=== PATIENT | male | born 1985 | race Asian ===

== ENCOUNTER 2018-11-10 09:47 | Emergency (ER) | payer BC, OTHER ==
--- NOTE | 2018-11-10 09:58 | EDPHY ---
HPI/HX/ROS/PE/MDM Narrative: CHIEF COMPLAINT: Chest Pain HPI: This patient is a pleasant 32 year old male with history of hypertension. He presents today with complaints of intermittent left-sided chest pain which began after waking this morning around 5:20am. He describes this as an aching sensation, like "prodding pressure". These episodes last about 10-30 minutes. He denies any identifiable provocative or palliative factors. Denies shortness of breath. The sensation is not changed with deep inspiration. No pain or swelling in his calves. He is generally quite active, but has been tired the past couple days and skipped his regular [employer] workout yesterday. He denies any recent chest trauma or injuries. No known personal or immediate family history of cardiac disease. He endorses history of back and neck issues, but these are chronic and he denies any acute exacerbations. REVIEW OF SYSTEMS: A comprehensive 10 system review of systems is otherwise negative aside from elements mentioned in the history of present illness and medical decision making. PMH: Hypertension. SOCIAL HISTORY: Employed. Lives in [place]. Does not abuse tobacco, drugs, or alcohol. PHYSICAL EXAM: General:Patient is alert, in no acute distress. ENT:Eyes are normal to inspection. ENT inspection normal. Neck: Normal inspection. Full range of motion. Respiratory:No respiratory distress. Breath sounds normal bilaterally. Cardiovascular: Regular rate and rhythm. Strong peripheral pulses. Normal cap refill. Abdomen:The abdomen is nontender to palpation. There are no peritoneal signs. There are normal bowel sounds. Back: Normal to inspection. No tenderness to palpation. Skin: Normal color. No rash. Warm and dry. Extremities: Normal appearance. Full range of motion. Neuro: Oriented x3. Normal motor function. Normal sensory function. ED Course: 32 year old male presents with intermittent chest discomfort onset around 5: 20am this morning after waking. Exam is largely unremarkable. Plan for EKG, chest x-ray, labs including CBC, chemistries, POC troponin. 9:58 EKG was ordered and interpreted by myself. Please see [employer] system for official reading. Normal sinus rhythm, rate 73, no evidence of ischemia. Reviewed laboratory studies and chest x-ray. These are unremarkable. Troponin negative. Reassessed patient. Discussed negative cardiac workup. Plan to discharge home in good condition with referral to cardiology. Follow up and return precautions discussed. He is comfortable with this plan. MDM: This is a healthy young male with isolated cardiac risk factor of well- controlled HTN. He presents with atypical chest pain. We performed an extensive workup which is negative. We discussed options following the shared- decision making model and HEART score, for which he scores low risk. He is comfortable with the plan to be discharged and follow-up with cardiology as an outpatient. He agrees to return to the ED immediately for any worsening of condition. The patient presents with chest pain, but workup in the Emergency Department is negative. The patient is hemodynamically stable and comfortable with the plan of discharge and close follow-up as an outpatient. As part of an extensive differential, the following life-threatening etiologies of chest pain were considered and found to be unlikely: Acute Coronary Syndrome - This is unlikely as troponin and ECG are negative and patient's only risk factor is hypertension. Pneumonia - The patient is afebrile and has a clear CXR. Thoracic Aortic Dissection - The patient is not significantly hypertensive and nature of the chest pain is not typical for this disease. CXR shows no stigmata of TAD. Pulmonary Embolus - The patient has no risk factors for this disease per Well's Criteria. PERC rule defines the patient as very low risk. Clinical exam and history are not consistent with acute PE. Pericarditis- The patient is afebrile and has a normal ECG. Chest pain is not positional. - Data Points Imaging Results: Imaging Impressions Chest X-Ray 11/10/18 09:54 Impression: Normal chest. Imaging: I viewed and interpreted images myself Laboratory Results: Laboratory Results 11/10/18 10:00 11/10/18 10:00 11/10/18 11/10/18 11/10/18 10:06 10:00 10:00 WBC 6.21 10^3/uL 10^3/uL (3.80-9.50) RBC 5.09 10^6/uL 10^6/uL (4.40-6.38) Hgb 15.3 g/dL g/dL (13.7-17.5) Hct 46.6 % % (40.0-51.0) MCV 91.6 fL fL (81.5-99.8) MCH 30.1 pg pg (27.9-34.1) MCHC 32.8 g/dL g/dL (32.4-36.7) RDW 12.4 % % (11.5-15.2) Plt Count 275 10^3/uL 10^3/uL (150-400) MPV 9.4 fL fL (8.7-11.7) Neut % (Auto) 60.2 % % (39.3-74.2) Lymph % (Auto) 23.5 % % (15.0-45.0) [place] % (Auto) 11.0 % % (4.5-13.0) Eos % (Auto) 4.8 % % (0.6-7.6) Baso % (Auto) 0.5 % % (0.3-1.7) Nucleat RBC Rel Count 0.0 % % (0.0-0.2) Absolute Neuts (auto) 3.74 10^3/uL 10^3/uL (1.70-6.50) Absolute Lymphs (auto) 1.46 10^3/uL 10^3/uL (1.00-3.00) Absolute Monos (auto) 0.68 10^3/uL 10^3/uL (0.30-0.80) Absolute Eos (auto) 0.30 10^3/uL 10^3/uL (0.03-0.40) Absolute Basos (auto) 0.03 10^3/uL 10^3/uL (0.02-0.10) Absolute Nucleated RBC 0.00 10^3/uL 10^3/uL (0-0.01) Immature Gran % 0.0 % % (0.0-1.1) Immature Gran # 0.00 10^3/uL 10^3/uL (0.00-0.10) Sodium 140 mEq/L mEq/L (135-145) Potassium 4.1 mEq/L mEq/L (3.5-5.2) Chloride 104 mEq/L mEq/L (97-110) Carbon Dioxide 26 mEq/l mEq/l (22-31) Anion Gap 10 mEq/L mEq/L (6-14) BUN 13 mg/dL mg/dL (7-23) Creatinine 0.9 mg/dL mg/dL (0.7-1.3) Estimated GFR > 60 Glucose 59 mg/dL L mg/dL (70-100) Calcium 9.3 mg/dL mg/dL (8.5-10.4) POC Troponin I 0.00 ng/mL ng/mL (0.00-0.08) Medications Given: Discontinued Medications Aspirin (Aspirin) 324 mg PO EDNOW ONE Stop: 11/10/18 10:02 Last Admin: 11/10/18 10:05 Dose: 324 mg Point of Care Test Results: Chemistry 11/10/18 10:06 POC Troponin I 0.00 ng/mL ng/mL (0.00-0.08) General Time Seen by Provider: 11/10/18 09:54 Initial Vital Signs: Initial Vital Signs Temperature (C) 36.6 C 11/10/18 09:50 Heart Rate 64 11/10/18 09:50 Respiratory Rate 18 11/10/18 09:50 Blood Pressure 152/119 H 11/10/18 09:50 O2 Sat (%) 98 11/10/18 09:50 O2 Delivery Mode Room Air Allergies/Adverse Reactions: Penicillins Allergy (Verified 11/10/18 09:49) Home Medications: Medication Instructions Recorded Losartan Potassium 11/10/18 Departure - Departure Disposition: Home, Routine, Self-Care Clinical Impression: Chest pain Condition: Good Instructions: Chest Pain (ED) Additional Instructions: Follow-up with your primary doctor within 72 hours. Return to the Emergency Department for fever, chest pain, shortness of breath, increasing pain or other worsening of condition. Follow up with a stained glass glazier helper for further testing, as soon as possible, within one week. As we discussed, it is impossible to fully rule out heart disease as the cause of your chest pain in the emergency department. We would be happy to reevaluate you and observe you in the hospital at any time. Referrals: Darnell Howard DO [Primary Care Provider] - As per Instructions Alec Hernández MD [Medical Doctor] - As per Instructions Report Scribed for: Darnell Sullivan Report Scribed by: Valentina Vora Date of Report: 11/10/18 Time of Report: 10:29 Physician Review and Approval Statement: Portions of this note were transcribed by an ED scribe. I personally performed the history, physical exam, and medical decision making; and confirm the accuracy of the information in the transcribed note.
[2018-11-10] MEDS ORDERED: ASPIRIN 81 MG CHEWABLE TAB PO ONE (10:01)
[2018-11-10 10:16] LABS: PLATELET COUNT 275 10^3/uL (150-400)
[2018-11-10 11:05] VITALS: BP 176/107
--- NOTE | 2018-11-10 14:09 | CPEKG ---
Test Reason : OPEN Blood Pressure : / mmHG Vent. Rate : 073 BPM Atrial Rate : 070 BPM P-R Int : 143 ms QRS Dur : 085 ms QT Int : 381 ms P-R-T Axes : 064 045 040 degrees QTc Int : 420 ms Sinus rhythm Confirmed by Darnell Sullivan ([id number]) on 11/10/2018 2:08:51 PM Referred By: Darnell Sullivan Confirmed By:Darnell Sullivan
== END 2018-11-10 11:09 | disposition home or self-care (01) ==
DX: R07.89 Other chest pain (principal); I10 Essential (primary) hypertension
CPT/HCPCS: 84484-ER